=== PATIENT | male | born 1960 | race Two or more races ===

== ENCOUNTER 2018-01-03 11:17 | Emergency (ER) | payer MEDICAID, OTHER ==
[~2018-01-03] VITALS: Ht 165.1 cm; Wt 83.9 kg
[~2018-01-03 11:17] MED LIST: CEPHALEXIN500 MG ORAL; LISINOPRIL20 MG ORAL; PERI-COLACE1 EA ORAL; TRAMADOL HCL50 MG ORAL
[2018-01-03 11:40] VITALS: BP 150/90
[2018-01-03] MEDS ORDERED: NORCO 5-325 TA1 EACH ORAL (11:59)
[2018-01-03] MEDS ORDERED: CEPHALEXIN500 MG ORAL (11:59)
[2018-01-03] MEDS ORDERED: Bacitracin Oint UD TOPIC ONE (12:00)
[2018-01-03] MEDS ORDERED: Cephalexin 500mg cap ORAL ONE (12:00)
[2018-01-03] MEDS ORDERED: Tetanus/Diptheria/Pertussis Vaccine 0.5ml Syr IM ONE (12:00)
--- NOTE | 2018-01-03 13:07 | Emergency Room Report ---
History of Present Illness General Chief Complaint: Laceration Source: Patient Present Illness HPI This patient had injury at work, sliced finger with table saw. No other complaints except left index finger lac. No trauma, no fever, no shortness of breath, no chest pain, no nausea, no vomiting, no diarrhea, no abdominal pain, no syncope, LOC, dizziness, lightheadedness, headache. Allergies: Coded Allergies: NO KNOWN DRUG ALLERGIES (Verified Allergy, Unknown, 04/08/15) Nursing Documentation-PMH Hx Hypertension: Yes Hx Cancer: No Hx Gastrointestinal Problems: No Hx Neurological Problems: No Review of Systems Constitutional: Denies: fever Eye: Denies: acuity changes Respiratory: Denies: cough, shortness of breath Cardiovascular: Denies: chest pain Gastrointestinal: Denies: nausea, vomiting Skin: Denies: rash Neurological: Denies: headache All Other Systems: negative except mentioned in HPI Physical Exam Vital Signs Date Time Temp Pulse Resp B/P (MAP) Pulse Ox O2 Delivery O2 Flow Rate FiO2 01/03/18 11:35 98.0 76 16 150/90 98 Room Air 98.1 General Appearance: well appearing, no apparent distress Head: normocephalic, atraumatic ENT: hearing grossly normal, normal voice Neck: full range of motion, supple Respiratory: no respiratory distress, speaking full sentences Musculoskeletal: other - left index finger avulsion lac/avulsion dorsal tip, bone just barely visible Neurologic: alert, normal gait Psychiatric: mood/affect normal Skin: no rash Medical Decision Making Diagnostic Impression: Primary Impression: Laceration ER Course open fx. cleansed, betadine, nonstick then bulky dressing, keflex, TDAP Last Vital Signs Date Time Temp Pulse Resp B/P (MAP) Pulse Ox O2 Delivery O2 Flow Rate FiO2 01/03/18 11:40 98.1 16 150/90 98 Room Air 98.1 01/03/18 11:35 76 Disposition: HOME, SELF-CARE Condition: Improved Scripts Hydrocodone Bit/Acetaminophen 5-325* (NORCO 5-325*) 1 Each Tablet 1 TAB ORAL Q6H PRN for For Pain, #10 TAB 0 Refills Prov: Crow Tesfaye M.D. 01/03/18 Cephalexin* (KEFLEX*) 500 Mg Capsule 500 MG ORAL EVERY 6 HOURS for 7 Days, CAP Prov: Crow Tesfaye M.D. 01/03/18 Referrals: NOT CHOSEN [facility]/,REFERRING (PCP) Patient Instructions: Laceration Care, Adult Corw Tesfaye M.D. Jan 03, 2018 13:07
--- NOTE | 2018-01-03 13:33 | Diagnostic Imaging Report ---
Indication: Pain, injury to distal second finger Technique: 3 views left hand Comparison: none Findings: Is evidence of traumatic amputation of the distal aspect of the second digit. On the lateral view, in addition soft tissue loss there is evidence of some bone loss of the terminal tuft of the distal phalanx. The remaining bone appears to be not fractured. No radiopaque foreign body demonstrated. No other evidence of acute fracture or dislocation. The bony alignment is normal. The joint spaces are preserved. Impression: Evidence of traumatic soft tissue amputation of the distal fifth digit and amputation of a small part of the terminal tuft of the distal phalanx No fracture of foreign body demonstrated.
[2018-01-03 13:40] VITALS: BP 144/78
== END 2018-01-03 13:40 | disposition home or self-care (01) ==
LOC: EMR 12:18
DX: S61.211A Laceration without foreign body of left index finger without damage to nail, initial encounter (principal); I10 Essential (primary) hypertension; Z23 Encounter for immunization; W27.0XXA Contact with workbench tool, initial encounter; Y92.9 Unspecified place or not applicable; Y99.0 Civilian activity done for income or pay
CPT/HCPCS: 90471; 90715; 99283